=== PATIENT | female | born 1990 | race Caucasian/White ===

== ENCOUNTER 2018-01-12 08:45 | Emergency (ER) | payer OTHER ==
[2018-01-12] MEDS: AZITHROMYCIN 250 MG TAB PO (09:50)
[2018-01-12] MEDS: CEFTRIAXONE 250 MG INJ IM (09:53)
[2018-01-12 10:09] LABS: ADD UMIC YES; UR ASCORBIC ACID 40 mg/dL (NEGATIVE); UR BACTERIA FEW /HPF (NONE SEEN); UR BILIRUBIN (Dip) NEGATIVE (NEGATIVE); UR BLOOD (Dip) 2+ mg/dL (NEGATIVE); UR CLARITY CLOUDY (CLEAR); UR COLOR YELLOW (YELLOW); UR GLUCOSE (Dip) NEGATIVE (NEGATIVE); UR KETONES (Dip) NEGATIVE (NEGATIVE); UR LEUKOCYTE ESTERASE (Dip) 3+ Leu/ul (NEGATIVE); UR NITRITE (Dip) NEGATIVE (NEGATIVE); UR RBC 6 /HPF (0-5); UR SPECIFIC GRAVITY (Dip) 1.026 (1.003-1.030); UR SQUAMOUS EPITHELIAL CELL MANY /HPF (FEW); UR TOTAL PROTEIN (Dip) 1+ mg/dl (NEGATIVE); UR UROBILINOGEN (Dip) NEGATIVE (NEGATIVE); UR WBC 52 /HPF (0-5)
== END 2018-01-12 11:30 | disposition home or self-care (01) ==
LOC: FTE 08:45
DX: N89.8 Other specified noninflammatory disorders of vagina (principal); N30.00 Acute cystitis without hematuria
CPT/HCPCS: 81001; 81025; 87210; 87591; 96372; 99284-25

== ENCOUNTER 2018-04-21 10:44 | Emergency (ER) | payer OTHER | END 2018-04-21 13:25 | disposition home or self-care (01) | LOC: FTE 13:25 | DX: F41.9 Anxiety disorder, unspecified (principal); J06.9 Acute upper respiratory infection, unspecified | CPT/HCPCS: 99283; Z7502 ==

== ENCOUNTER 2018-12-10 08:30 | Emergency (ER) | payer SELFPAY, OTHER | END 2018-12-10 10:38 | disposition home or self-care (01) | LOC: FTE 08:30 | DX: J02.9 Acute pharyngitis, unspecified (principal) | CPT/HCPCS: 99283 ==